=== PATIENT | female | born 1975 | race Caucasian/White ===

== ENCOUNTER 2016-11-07 06:42 | Emergency (ER) | payer SELFPAY ==
[2016-11-07] MEDS ORDERED: CLINDAMYCIN 150 MG CAP PO ONE (07:12)
[2016-11-07] MEDS ORDERED: NAPROXEN 250 MG TABLET PO ONE (07:13)
--- NOTE | 2016-11-07 07:19 | Emergency Department Record ---
History of Present Illness - General Chief complaint: Dental Stated complaint: DENTAL PAIN Time Seen by Provider: 11/07/16 07:08 Source: Patient Mode of Arrival: Ambulatory Limitations: No limitations - History of Present Illness Initial comments: The patient is here due to a one day hx of L facial and dental pain. She has a long hx of dental issues and does have an appointment with a Dentist tomorrow. She feels pain with smiling, talking and swallowing. There are no changes in her voice or speech and no MAGGY or fever. MD complaint: Tooth pain Onset/Timin -: Days(s) Severity: Severe Severity scale (1-10): 10 Quality: Aching Consistency: Constant Improves with: NSAID Worsens with: Swallowing Context- Dental: History of dental caries Associated Symptoms: Gum swelling, Pain with swallowing, Sore throat, Toothache - Related Data Previous Rx's Medication Instructions Recorded Clindamycin HCl [Cleocin HCl] 300 mg PO QID #28 capsule 11/07/16 Naproxen [Naprosyn] 500 mg PO BID #14 tablet. 11/07/16 Allergies Allergy/AdvReac Type Severity Reaction Status Date / Time No Known Drug Allergies Allergy Unverified 12/16/15 08:25 Travel Screening - Travel/Exposure Within Last 30 Days Have you traveled within the last 30 days?: No Review of Systems Constitutional: Denies: Chills, Fever Eyes: Denies: Eye discharge ENT: Denies: Congestion Respiratory: Denies: Cough, Dyspnea Past Medical History - SOCIAL HISTORY Smoking Status: Light tobacco smoker (<10/day) Alcohol Use: Occassional Drug Use: None - RESPIRATORY Hx Respiratory Disorders: No - CARDIOVASCULAR Hx Cardio Disorders: No - NEURO Hx Neuro Disorders: No - GI Hx GI Disorders: No - Hx Genitourinary Disorders: No - ENDOCRINE Hx Endocrine Disorders: No - MUSCULOSKELETAL Hx Musculoskeletal Disorders: No - PSYCH Hx Psych Problems: No - HEMATOLOGY/ONCOLOGY Hx Hematology/Oncology Disorders: No Family Medical History Any Significant Family History?: Yes Hx Cancer: Grandparents Hx Diabetes: Grandparents Hx Heart Disease: Grandparents Physical Exam - General General Appearance: Alert, Oriented x3, Cooperative, No acute distress - Head Head exam: Atraumatic, Normocephalic, Normal inspection - Eye Eye exam: Normal appearance, PERRL, EOMI - ENT ENT exam: negative: Normal exam (There is very mild swelling at the L maxillary facial area with mod tenderness.), TM's normal bilaterally (There is bilateral cerumen blocking visualization of the TM's. There is no canal tenderness, swelling or erythema.) Teeth exam: Dental caries, Dental tenderness # (14 and 15. There is tenderness at the gum line but no overt abscess.). negative: Normal inspection Throat exam: Normal inspection, Other (There are NO signs of any edema, erythema , or swelling and no voice or speech changes.). negative: Tonsillar erythema, Tonsillomegaly, Tonsillar exudate, R peritonsillar mass, L peritonsillar mass - Neck Neck exam: Normal inspection, Full ROM. negative: Lymphadenopathy, Meningismus , Tenderness - Respiratory Respiratory exam: Normal lung sounds bilaterally. negative: Respiratory distress - Cardiovascular Cardiovascular Exam: Regular rate, Normal rhythm, Normal heart sounds - GI/Abdominal GI/Abdominal exam: Soft, Normal bowel sounds. negative: Tenderness Course Vital Signs 11/07/16 06:47 Temperature 98.6 F Pulse Rate [ 95 H Pulse Ox Probe] Respiratory 16 Rate Blood Pressure 134/102 [Left Arm] Pulse Ox 97 - Reevaluation(s) Reevaluation #1: I did explain to the patient that we will treat her for a dental infection and she is to keep the appointment with her Dentist for tomorrow. 11/07/16 07:17 Disposition Disposition: Discharge Clinical Impression: Dental infection Disposition: Home, Self-Care Condition: (1) Good Instructions: Toothache (ED) Additional Instructions: Please take the Clindamycin and Naprosyn as directed and keep your appointment for tomorrow. Please also see your PCP for recheck of your ears and for an ENT referral for your ear issues. Prescriptions: Clindamycin HCl [Cleocin HCl] 300 mg PO QID #28 capsule Naproxen [Naprosyn] 500 mg PO BID #14 tablet.dr Forms: Patient Portal Access Time of Disposition: 07:19 Quality - Quality Measures Quality Measures: N/A - Blood Pressure Screening Blood Pressure Classification: Hypertensive Reading Systolic Measurement: 134 Diastolic Measurement: 102 Screening for High Blood Pressure: < Pre-Hypertensive BP, F/U Documented > [ [id number]] Pre-Hypertensive Follow-up Interventions: Follow-up with rescreen every year.
== END 2016-11-07 07:25 | disposition home or self-care (01) ==
LOC: ER 06:42
DX: K04.7 Periapical abscess without sinus (principal)
CPT/HCPCS: 99282